=== PATIENT | female | born 2000 | race Caucasian/White ===

== ENCOUNTER 2018-05-14 16:20 | Outpatient (CLI) | payer OTHER ==
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
== END 2018-05-14 16:21 | disposition home or self-care (01) ==
LOC: SCSRAD 16:20
PROVIDERS: ATTEND Pediatrics
DX: M54.2 Cervicalgia (principal); M54.9 Dorsalgia, unspecified

== ENCOUNTER 2019-04-13 09:29 | Outpatient (CLI) | payer BC ==
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
== END 2019-04-13 09:30 | disposition home or self-care (01) ==
LOC: SCSRAD 09:29
PROVIDERS: ATTEND Pediatrics
DX: M54.5 Low back pain (principal); G89.29 Other chronic pain
CPT/HCPCS: 72100